=== PATIENT | male | born 1965 | race Caucasian/White ===

== ENCOUNTER 2023-04-16 07:28 | Outpatient (OUT) | payer BC, SELFPAY ==
--- NOTE | 2023-04-16 07:36 | MR_ITS ---
[address] [address] Patient Name: BEKA DAY MRN: [facility]:[id number] date: 1965 Sex: M Assigned Patient Location: MRI Current Patient Location: MRI Accession/Order Number: [id number] Exam Date: 04/16/2023 07:48 Report Date: 04/16/2023 09:42 At the request of: SEJAL OWUSU Procedure: MR lumbar spine wo con EXAMINATION: MR lumbar spine wo con HISTORY: Myelopathy lumbar region M51.06 COMPARISON: No relevant comparison available. TECHNIQUE: A variety of imaging planes and parameters were utilized for visualization of suspected pathology. FINDINGS: For the purposes of numbering, sagittal T2 image # 8 extends from the T11 vertebral body superiorly to the S2-S3 level inferiorly. PARASPINAL AREA: Normal with no visible mass. Ectasia of the infrarenal aorta measuring up to 2.6 cm in diameter BONES: Normal alignment with no acute fracture or spondylolisthesis. Moderate diffuse degenerative spondylosis and facet osteoarthropathy most significant at L3-S1. Signal abnormality inferior L5 superior S1, Modic 2 change CORD/CAUDA EQUINA: Normal caliber, contour, and signal intensity. DISC LEVELS: 12-L1: No significant disc/facet abnormality, spinal stenosis, or foraminal stenosis. L1-L2: Early degenerative disc disease is present without focal protrusion or neural impingement. L2-L3: Early degenerative disc disease is present without focal protrusion or neural impingement. L3-L4: Early degenerative disc disease is present without focal protrusion or neural impingement. L4-L5: Moderate to severe disc space narrowing and disc desiccation with endplate sclerosis. Moderate broad-based disc protrusion with posterior disc herniation having both extrusion and protrusion components extending posteriorly up to 4.0 mm, sagittal image 8 with inferior migration up to 4 mm. Moderate ligamentum flavum hypertrophy and facet osteoarthropathy. Moderate trefoil narrowing of the central canal, axial image #19. Mild left foraminal stenosis Protrusion L5-S1: Disc collapse with endplate sclerosis. Moderate diffuse disc/osteophyte complex. Moderate ligamentum flavum hypertrophy and facet osteoarthropathy. No central canal stenosis. Moderate right and mild left foraminal stenosis IMPRESSION: Moderate to severe degenerative changes L4-S1 with foraminal stenosis at both levels as detailed above Electronically authenticated by: AARON SHARIF Date: 04/16/2023 09:42
== END 2023-04-16 07:29 | disposition home or self-care (01) ==
LOC: MRI 07:30
PROVIDERS: PCP Family Medicine; Visit Provider Family Medicine
DX: M51.06 Intervertebral disc disorders with myelopathy, lumbar region (principal); G83.14 Monoplegia of lower limb affecting left nondominant side
CPT/HCPCS: 72148

== ENCOUNTER 2023-12-17 07:38 | Emergency (ER) | payer SELFPAY ==
[2023-12-17 07:42] VITALS: BP 152/94; PULSE 102; RESP 20; TEMP 37.6; O2SAT 97; BMI 27.3
[2023-12-17 07:52] VITALS: O2SAT 97
--- NOTE | 2023-12-17 07:54 | XR_ITS ---
The [address] [address] Patient Name: BEKA DAY MRN: [id number] date: 1965 Sex: M Assigned Patient Location: ER Current Patient Location: ER Accession/Order Number: [id number] Exam Date: 12/17/2023 08:15 Report Date: 12/17/2023 08:32 At the request of: ELADAI DE ANDA Procedure: XR chest 2V EXAMINATION: XR chest 2V HISTORY: sob COMPARISON: No relevant comparison available. TECHNIQUE: PA and lateral FINDINGS: LUNGS: No significant pulmonary parenchymal abnormalities. VASCULATURE: No increased pulmonary vasculature. PLEURA: No pneumothorax, effusion, or pleural thickening. CARDIAC: No cardiomegaly or cardiac silhouette abnormality. MEDIASTINUM: No visible mass or adenopathy. BONES: Mild degenerative disc disease and spondylosis without visible acute abnormalities. OTHER: Negative. XR/XR chest 2V IMPRESSION: No acute cardiopulmonary process Electronically authenticated by: AARON SHARIF Date: 12/17/2023 08:32
--- NOTE | 2023-12-17 08:01 | ED.GENADUL1 ---
HPI - General Adult General Chief complaint: Shortness of Breath/Dyspnea Stated complaint: SOB Time Seen by Provider: 12/17/23 07:54 Source: patient History of Present Illness HPI narrative: Patient is a 58-year-old male who is presenting to the ER today with chief complaint of cough, congestion, dry cough, shortness of breath, pulse ox reading of 90% at home on a home oxygen meter, myalgia, arthralgia, and not feeling well since Saturday. Patient is a smoker, he is down to smoking 3 cigarettes a day. Patient smoked approximately 5 years of three quarters a pack a day. 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 Patient has had no nausea, vomiting, diarrhea. No rash. No recent traveling. No other acute complaints. All systems are negative except as noted/marked. All systems reviewed and otherwise negative. Nurses note and vital signs reviewed and patient is not hypoxic. General: The patient appears well and in no apparent distress. Patient is resting comfortably on cart. Patient is not toxic, lethargic, or listless. no coughing until patient took deep breaths, and when patient was taking a deep breath he did have coughing with congestion and wheezing. Skin: Warm, dry, no pallor noted. There is no rash noted. No petechiae, purpura. Head: Normocephalic, atraumatic Eye: Normal conjunctiva, no drainage, EOMI. PERRL Ears, Nose, Mouth, and Throat: oral mucosa is moist. Clear drainage to the posterior pharynx, mild posterior pharyngeal erythema, no petechiae, no exudate. Nares patent. Mouth without vesicles. Cardiovascular: Regular Rate and Rhythm, no murmur, gallop, rub Respiratory: Patient is in no distress, no accessory muscle use, lungs are clear when patient is not coughing. When patient is coughing, he has bilateral congestion, mild rhonchi, and diffuse wheezing. Back: non-tender, GI: no tenderness to palpation, Musculoskeletal: Patient has full range of motion of all of the extremities, no motor, sensory, or focal neurological deficits Neurological: A&O x4, normal speech Psychiatric: Cooperative Related Data Home Medications Medication Instructions Recorded Confirmed albuterol sulfate 2.5 mg/3 mL 1.25 mg continuous nebulization 12/17/23 12/17/23 (0.083 %) solution for nebulization Q8H PRN bronchospasm albuterol sulfate 90 mcg/actuation 1 inh inhalation Q8H PRN 12/17/23 12/17/23 aerosol inhaler bronchospasm Previous Rx's Medication Instructions Recorded prednisone 50 mg tablet 50 mg PO DAILY 3 days #3 tabs 12/17/23 Allergies Allergy/AdvReac Type Severity Reaction Status Date / Time Penicillins Allergy Intermediate Verified 12/17/23 07:42 PFSH PFS Social History Smoking status: Current every day smoker Exam Constitutional Vital Signs, click to edit/add: Last Vital Signs Temp 99.7 F 12/17/23 07:42 Pulse 100 H 12/17/23 08:03 Resp 20 12/17/23 07:42 BP 152/94 H 12/17/23 07:42 Pulse Ox 97 12/17/23 07:52 O2 Del Method Room Air 12/17/23 07:52 Course Vital Signs Vital signs: Vital Signs Temperature 99.7 F 12/17/23 07:42 Pulse Rate 102 H 12/17/23 07:42 Respiratory Rate 20 12/17/23 07:42 Blood Pressure 152/94 H 12/17/23 07:42 Pulse Oximetry 97 12/17/23 07:42 Temperature 99.7 F 12/17/23 07:42 Pulse Rate 100 H 12/17/23 08:03 Respiratory Rate 20 12/17/23 07:42 Blood Pressure 152/94 H 12/17/23 07:42 Pulse Oximetry 97 12/17/23 07:52 Oxygen Delivery Method Room Air 12/17/23 07:52 Medical Decision Making MDM Narrative Medical decision making narrative: Patient had influenza, COVID swab, chest x-ray and breathing treatment done. Patient was given a DuoNeb breathing treatment that helped slightly as well. Patient does have albuterol inhaler and albuterol nebulizer at home, he does have Nebules. Patient is trying to quit smoking, he is down to 3 cigarettes a day. Patient is given a work note, education on [id number] symptomatic treatment was discussed at bedside and on discharge paperwork. Influenza, COVID, chest x-ray are negative. Lab Data Labs: Lab Results 12/17/23 Range/Units 07:47 Influenza Type A Ag Negative Influenza Type B Ag Negative SARS-CoV-2 Ag (CV2AG) Negative (NEGATIVE) Discharge Plan Discharge Chief Complaint: Shortness of Breath/Dyspnea Clinical Impression: Sinus congestion, URI (upper respiratory infection), Dyspnea, Flu-like symptoms, Asthma with acute exacerbation Patient Disposition: Home, Self-Care Time of Disposition Decision: 08:35 Condition: Fair Prescriptions / Home Meds: New prednisone 50 mg tablet 50 mg PO DAILY 3 Days Qty: 3 0RF No Action albuterol sulfate 2.5 mg /3 mL (0.083 %) solution for nebulization 1.25 mg continuous nebulization Q8H PRN (Reason: bronchospasm) albuterol sulfate 90 mcg/actuation HFA aerosol inhaler 1 inh INHALATION Q8H PRN (Reason: bronchospasm) Instructions: Asthma (ED), Upper Respiratory Infection (ED), Dyspnea (ED), Wheezing (ED) Additional Instructions: Increase fluids at home, Gatorade, Powerade, or water. Alternate using DayQuil, NyQuil, and Flonase. At Mucinex as well as needed. Alternate Tylenol and Motrin every 4 hours to help with fever control, body aches or joint pain. Use [id number] vitamin C, vitamin D3, and zinc to help fight infection and help with her immune system. Stand Alone Forms: Work/School Release, Portal Instructions Referrals: SEJAL OWUSU [Primary Care Provider] - 1 week
[2023-12-17 08:03] VITALS: PULSE 100
[2023-12-17] MEDS: IPRATROPIUM/ALBUTEROL SULFATE 3 ML AMPUL.NEB IH (08:05)
[2023-12-17 08:23] LABS: Influenza Virus A Antigen Negative; Influenza Virus B Antigen Negative; Internal Control Within Normal Limits; SARS-CoV-2 Ag NEGATIVE (NEGATIVE)
== END 2023-12-17 08:53 | disposition home or self-care (01) ==
PROVIDERS: Emergency Provider Emergency Medicine; PCP Family Medicine
DX: J45.901 Unspecified asthma with (acute) exacerbation (principal); J06.9 Acute upper respiratory infection, unspecified; R09.81 Nasal congestion; F17.210 Nicotine dependence, cigarettes, uncomplicated; R06.00 Dyspnea, unspecified
CPT/HCPCS: 71046; 87798; 87804; 87811; 94640; 99284; 99406